=== PATIENT | male | born 2005 | race African-American/Black ===

== ENCOUNTER 2023-05-01 21:39 | Emergency (ER) | payer SELFPAY ==
[2023-05-01 22:56] LABS: #Monocytes 0.2 thou/uL (0.11-0.59); #Neutrophils 2.1 thou/uL (1.40-6.50); %Monocytes 5.9 % (0.0-4.0); %Neutrophils 54.8 % (31.0-61.0); Hematocrit 42.8 % (42.0-52.0); Hemoglobin 15.2 g/dL (14.0-18.0); Mean Corpuscular HGB CONC 35.5 g/dL (32.0-36.0); Mean Corpuscular Hemoglobin 31.7 pg (25.0-35.0); Mean Corpuscular Volume 89.4 fl (78.0-98.0); Mean Platelet Volume 9.1 fL (7.4-10.4); Platelet Count 230 10x3/uL (130-400); RBC Distribution Width 11.5 % (11.5-14.5); Red Blood Cell (RBC) Count 4.79 mill/uL (4.00-5.20); White Blood Cell (WBC) Count 3.9 10x3/uL (4.8-10.8)
[2023-05-01 23:21] LABS: ALT (SGPT) 27 U/L (8-55); AST (SGOT) 18 U/L (10-45); Albumin 4.7 g/dL (3.5-5.0); Alkaline Phosphatase 56 U/L (50-130); Anion Gap 16 mmol/L (10-20); BUN (Urea Nitrogen) 13 mg/dL (8.4-21.0); Bilirubin, Total 3.7 mg/dL (0.2-1.2); Calc. Creatinine Clearance 0 mL/min (70-130); Calcium 9.5 mg/dL (7.8-10.44); Carbon Dioxide 25 mmol/L (22-29); Chloride 99 mmol/L (98-107); Estimated GFR 101; Globulin 3.4 g/dL (2.4-3.5); Glucose 83 mg/dL (70-105); Lipase Less than 4 U/L (8-78); Protein, Total 8.1 g/dL (6.0-8.3); Sodium 136 mmol/L (136-145)
[2023-05-01 23:42] LABS: Bacteria/HPF None Seen HPF (None Seen); Bilirubin Negative (Negative); Blood, Urine 1+ (Negative); CAUTI Indications for Culture Dysuria,urgency,freq; Clarity Clear (Clear); Glucose, Urine (Dipstick) Normal (Negative); Ketone, Urine 60 mg/dL (Negative); Leukocyte Negative Leu/uL (Negative); Nitrite Negative (Negative); Protein, Urine (Dipstick) 20 mg/dL (Neg-Trace); RBC/HPF 0-3 HPF (0-3); Specific Gravity, Urine 1.028 (1.002-1.036); Squamous Epithelial 0-3 HPF (0-3); Urobilinogen Normal mg/dL (Less than 2); WBC/HPF 0-3 HPF (0-3)
[2023-05-01] MEDS ORDERED: Ketorolac Tromethamine 30 MG/ML VIAL ONE (23:45)
[2023-05-01 23:55] LABS: Urine Culture Reflex No No
== END 2023-05-02 00:49 | disposition home or self-care (01) ==
LOC: ERS 21:39
DX: E80.6 Other disorders of bilirubin metabolism (principal); D72.819 Decreased white blood cell count, unspecified
CPT/HCPCS: 36415; 76705; 80053; 81001; 83690; 85025; 93005; 96361; 96374; J1885